=== PATIENT | male | born 1940 | race Caucasian/White ===

== ENCOUNTER 2024-03-06 15:13 | Emergency (ER) | payer MEDICARE, OTHER, SELFPAY ==
[2024-03-06 15:16] VITALS: BP 165/71
[2024-03-06 15:34] LABS: % Basophils 0.6 % (0-2); % Eosinophils 1.5 % (0-6); % Immature Granulocytes 0.4 % (0-0.5); % Lymphocytes 33.5 % (20.5-51.1); % Monocytes 6.8 % (1.7-9.3); % Neutrophils 57.2 % (42.2-75.2); Absolute Basophils 0.1 10^3/uL (0-0.2); Absolute Eosinophils 0.1 10^3/uL (0-0.7); Absolute Lymphocytes 2.8 10^3/uL (1.2-3.4); Absolute Monocytes 0.6 10^3/uL (0.1-0.6); Absolute Neutrophils 4.8 10^3/uL (1.4-6.5); Hematocrit 39.4 % (39.0-52.0); Hemoglobin 14.3 g/dL (13.0-18.0); Mean Corp Hgb Conc. 36.3 g/dL (33.0-37.0); Mean Corpuscular Hgb 33.6 pg (27.0-31.0); Mean Corpuscular Volume 92.5 fL (80.0-94.0); Mean Platelet Volume 9.4 fL (7.4-10.4); Nucleated Red Blood Cells % 0 % (-); Platelet Count 151 10^3/uL (130-400); Red Blood Cell Count 4.26 10^6/uL (4.70-6.10); Red Cell Dist. Width 12.5 % (11.5-14.5); White Blood Cell Count 8.4 10^3/uL (4.8-10.8)
[2024-03-06 15:48] LABS: ALT (SGPT) 17 U/L (0-50); AST (SGOT) 23 U/L (17-59); Albumin 4.1 g/dl (3.5-5.0); Alkaline Phosphatase 50 U/L (38-126); Blood Urea Nitrogen 26 mg/dl (9-20); Calcium 9.7 mg/dl (8.4-10.2); Carbon Dioxide 28 mmol/L (22-30); Chloride 106 mmol/L (98-107); Glucose 187 mg/dl (70-99); Potassium 4.7 mmol/L (3.5-5.1); Sodium 140 mmol/L (135-145); Total Bilirubin 0.5 mg/dl (0.2-1.3); Total Protein 6.6 g/dl (6.3-8.2); eGFR > 60.00
--- NOTE | 2024-03-06 16:04 | ED.GENMED ---
History of Present Illness
General
Chief Complaint: DVT/Possible Blood Clot
Source: patient
Exam Limitations: none
Time Seen by Provider: 03/06/24 15:54
History of Present Illness
History of Present Illness:
83-year-old male sent in by radiology after having ultrasound of his left leg that demonstrated DVT. He denies chest pain or shortness of breath. He is not currently anticoagulated. No recent travel or surgery. No fevers. No other complaints at
this time
Phy Exam
Physical Exam
Physical Exam:
General: Well-appearing male no acute respiratory distress
HEENT: Normocephalic atraumatic
Heart: Regular rate and rhythm no murmurs lungs: Clear no wheeze or rales
Extremities: Mild edema left lower extremity vascular: 2+ dorsalis pedis pulse left foot
Neurologic: Good sensation left leg
Course
Orders/Labs/Results
Orders:
Orders
03/06/24 15:25
CMP [Comprehensive Metabolic Panel] Urgent
Complete Blood Count/With Diff Urgent
03/06/24 16:02
Apixaban [Eliquis] 10 mg PO NOW STA
Abnormal Lab Results
03/06/24
15:25
RBC 4.26 L 10^6/uL
(4.70-6.10)
MCH 33.6 H pg
(27.0-31.0)
BUN 26 H mg/dl
(9-20)
Glucose 187 H mg/dl
(70-99)
03/06/24 15:25
03/06/24 15:25
Vital Signs
Initial and Last Documented VS:
Initial Vital Signs
Temp Pulse Resp BP Pulse Ox
98.0 F 76 17 165/71 97
03/06/24 15:16 03/06/24 15:16 03/06/24 15:16 03/06/24 15:16 03/06/24 15:16
Last Documented Vital Signs
Temp Pulse Resp BP Pulse Ox
98.0 F 76 17 165/71 97
03/06/24 15:16 03/06/24 15:16 03/06/24 15:16 03/06/24 15:16 03/06/24 15:16
MDM/Problems Addressed
Differential Diagnosis Includes:
Patient sent in by ultrasound after noticing him to have a DVT in the left leg. No signs of PE no chest pain or shortness of breath. Vital signs are stable. Labs reviewed without significant finding. Will start on Eliquis and have him follow-up
with family doctor. Stable for discharge.
*Critical Care Note
Total Time (30-74mins, 75-104mins- exclusive of procedures): Not Applicable
ED Attending Note
-
Portions of this chart may have been created with voice recognition software.� Occasional wrong word or��sound alike� substitutions may have occurred due to the inherent limitations of voice recognition software.
Discharge Plan
Departure
Patient Disposition: Home (Routine Discharge)
Date of Disposition: 03/06/24
Time of Disposition: 16:08
Patient with high blood pressure during this ER visit?: No
Discharge Problem:
DVT (deep venous thrombosis)
Instructions: Deep Vein Thrombosis (Blood Clots in the Legs) (DC), Apixaban
Prescriptions:
New
Eliquis 5 mg tablet
5 mg PO BID Qty: 60 0RF
Rx Instructions:
Take 10mg twice a day for the first week then switch to 5mg twice a day
Activity Restrictions/Additional Instructions:
Stop aspirin. Start Eliquis. Take 10 mg twice a day for the first week then decrease to 5 mg twice a day. Follow-up with family doctor. Return here for any other concerning
Interventions
Interventions:
*Risk Screen - Suicide Last Done: 03/06/24 15:16
*General Assessment Last Done: 03/06/24 15:16
*Neglect/Abuse Screening Last Done: 03/06/24 15:16
*ED COVID-19 Vaccine History Last Done: 03/06/24 15:16
ED- Pulmonary Assessment Last Done: 03/06/24 15:54
ED-Peripheral Vascular Assessment Last Done: 03/06/24 15:53
ED-Skin Assessment Last Done: 03/06/24 15:53
Discharge Date and Time
Print Language: UKRAINIAN
[2024-03-06] MEDS: ELIQUIS 10 MG PO (16:22)
== END 2024-03-06 16:26 | disposition home or self-care (01) ==
LOC: EMR 15:13
PROVIDERS: Physician Assistant Medical; EMERGENCY PHYSICIAN Emergency Medicine; FAMILY PHYSICIAN Family Medicine
DX: I82.402 Acute embolism and thrombosis of unspecified deep veins of left lower extremity (principal); Z91.048 Other nonmedicinal substance allergy status
CPT/HCPCS: 99283; 80053; 85025; 93970